=== PATIENT | female | born 1980 | race Caucasian/White ===

== ENCOUNTER 2018-12-14 09:55 | Emergency (ER) | payer OTHER ==
[~2018-12-14] VITALS: Ht 167.6 cm; Wt 101.6 kg
[2018-12-14 09:58] VITALS: Ht 167.6 cm; Wt 101.6 kg
[2018-12-14 10:34] VITALS: BP 128/78
== END 2018-12-14 10:34 | disposition home or self-care (01) ==
LOC: ED 09:55
DX: H66.93 Otitis media, unspecified, bilateral (principal)